=== PATIENT | male | born 2000 | race African-American/Black ===

== ENCOUNTER 2025-01-26 10:46 | Emergency (ER) | payer OTHER ==
[~2025-01-26] VITALS: Ht 177.8 cm; Wt 77.0 kg
[2025-01-26 10:53] VITALS: O2SAT 96
[2025-01-26] MEDS: ACETAMINOPHEN 325MG TABLET PO ONE (11:36)
[2025-01-26] MEDS: KETOROLAC 15MG/ML VIAL IV ONE (11:50)
[2025-01-26 13:54] VITALS: BP 111/80; PULSE 87; RESP 18; TEMP 36.7; O2SAT 97
== END 2025-01-26 13:57 | disposition home or self-care (01) ==
LOC: ER 10:46
DX: M79.671 Pain in right foot (principal); M79.641 Pain in right hand; R51.9 Headache, unspecified; J45.909 Unspecified asthma, uncomplicated; Y04.0XXA Assault by unarmed brawl or fight, initial encounter; Y93.89 Activity, other specified; Y92.89 Other specified places as the place of occurrence of the external cause; Y99.8 Other external cause status
CPT/HCPCS: 73130; 73630; 70450; 96374; 99285; J1885; Z7610 ×2